=== PATIENT | female | born 1935 | race Caucasian/White ===

== ENCOUNTER 2016-11-12 11:33 | Emergency (ER) | payer OTHER ==
[2016-11-12 11:39] VITALS: TEMP 97.8; BMI 21.5
[2016-11-12] MEDS ORDERED: PANTOPRAZOLE SODIUM 40 MG in SODIUM CHLORIDE 100 ML IVPB ONE (13:40)
[2016-11-12] MEDS ORDERED: PANTOPRAZOLE SODIUM 100 ML IVPB ONE (13:47)
[2016-11-12 13:55] LABS: EOSINOPHIL 3.4 % (0-4.5); MCHC 33.8 g/dl (32.0-36.0); MEAN CELL VOLUME 82.8 fl (80-96); MEAN PLT VOLUME 7.9 fl (7.5-11.1); NEUTROPHILS 58.7 % (42.8-82.8); PLATELET COUNT 332 K/MM3 (134-434); RDW 13.8 % (11.6-15.6); WHITE BLOOD COUNT 6.7 K/mm3 (4.0-10.0)
--- NOTE | 2016-11-12 14:19 | PDOC ---
History of Present Illness - General Chief Complaint: Pain Stated Complaint: ABD PAIN (PCP SENT) Time Seen by Provider: 11/12/16 12:57 History Source: Patient Exam Limitations: No Limitations - History of Present Illness Travel History: No Initial Comments: 11/12/16 14:03 81-year-old female with history of diverticulitis presents with complaints of lower abdominal cramping, constipation, mild nausea, and epigastric burning. Patient does state is followed by Dr. Nando Acuna who prescribes her Nexium and has a follow-up appointment with her next month. Patient denies fever, chills, diarrhea but does state did have a small amount of loose stool this morning which may have been related to the MiraLAX she took a few days prior. Timing/Duration: reports: changing over time Quality: reports: mild, burning ( epigastric), cramping (lower abdomen) Pain Radiation: denies: no radiation Aggravating Factors: worse with: None Alleviating Factors: worse with: None Past History - Past Medical History Allergies/Adverse Reactions: Allergies Allergy/AdvReac Type Severity Reaction Status Date / Time erythromycin base Allergy Intermediate Hives Unverified 11/12/16 13:48 [Erythromycin Base] hyoscyamine [Hyoscyamine] Allergy Intermediate Unverified 11/12/16 13:48 lubiprostone [From Amitiza] Allergy Intermediate Unverified 11/12/16 13:48 ibandronate sodium Allergy Unverified 11/12/16 13:48 [From Boniva] montelukast sodium Allergy Hives Unverified 11/12/16 13:48 [From Singulair] moxifloxacin HCl Allergy Verified 11/12/16 13:48 [From Avelox] Penicillins Allergy Verified 11/12/16 13:48 Sulfa (Sulfonamide Allergy Verified 11/12/16 13:48 Antibiotics) [Sulfa(Sulfonamide Antibiotics)] esomeprazole magnesium AdvReac Intermediate Unverified 11/12/16 13:48 [From Nexium] meloxicam AdvReac Intermediate Unverified 11/12/16 13:48 meperidine HCl [From Demerol] AdvReac Verified 11/12/16 13:48 Penicillins Allergy Intermediate Hives Uncoded 11/12/16 13:48 Sulfa(Sulfonamide Allergy Intermediate Hives Uncoded 11/12/16 13:48 Antibiotics) moxifloxacin HCl Allergy Uncoded 11/12/16 13:48 Meperidine HCl AdvReac Intermediate Uncoded 11/12/16 13:48 meperidine HCl AdvReac Uncoded 11/12/16 13:48 Home Medications: Ambulatory Orders Aspirin Coated [Ecotrin -] 81 mg PO DAILY 10/14/11 Losartan Potassium 25 mg PO DAILY 10/14/11 Levothyroxine Sodium [Synthroid] 25 mcg PO DAILY 10/15/11 Famotidine [Pepcid] 20 mg PO HS 11/12/16 Polyethylene Glycol 3350 [Miralax (For Daily Use) -] 17 gm PO PRN 11/12/16 Anemia: No Asthma: No Cancer: No Cardiac Disorders: No CVA: No COPD: No CHF: No Dementia: No Diabetes: No GI Disorders: Yes (IBS, REFLUX,DIVERTICULOSIS) Disorders: No HTN: Yes Hypercholesterolemia: No Liver Disease: No Seizures: No Thyroid Disease: Yes (HYPO) - Surgical History Abdominal Surgery: No Appendectomy: No Cardiac Surgery: No Cholecystectomy: No Lung Surgery: No Neurologic Surgery: No Orthopedic Surgery: No - Psycho/Social/Smoking Cessation Hx Anxiety: No Suicidal Ideation: No Smoking History: Never smoked Have you smoked in the past 12 months: No Information on smoking cessation initiated: No Hx Alcohol Use: No Drug/Substance Use Hx: No Substance Use Type: None Hx Substance Use Treatment: No Patient Lives Alone: No Lives with/in: spouse/SO Abd/GI Specific PMHX - Complaint Specific PMHX Diverticulitis: Yes Review of Systems - Review of Systems Able to Perform ROS?: Yes Constitutional: No: Symptoms Reported HEENTM: No: Symptoms Reported Respiratory: No: Symptoms reported Cardiac (ROS): No: Symptoms Reported ABD/GI: Yes: Constipated, Indigestion, Abdominal cramping : No: Symptoms Reported Musculoskeletal: No: Symptoms Reported Integumentary: No: Symptoms Reported Neurological: No: Symptoms reported Endocrine: No: Symptoms Reported Hematologic/Lymphatic: No: Symptoms Reported *Physical Exam - Vital Signs Last Vital Signs Temp Pulse Resp BP Pulse Ox 97.8 F 97 H 18 156/86 100 11/12/16 11:35 11/12/16 11:35 11/12/16 11:35 11/12/16 11:35 11/12/16 11:35 - Physical Exam General Appearance: Yes: Nourished, Appropriately Dressed. No: Apparent Distress HEENT: positive: EOMI, ROSY. negative: Pale Conjunctivae Neck: positive: Supple Respiratory/Chest: positive: Lungs Clear, Normal Breath Sounds. negative: Respiratory Distress, Accessory Muscle Use Cardiovascular: positive: Regular Rhythm, Regular Rate. negative: Murmur Gastrointestinal/Abdominal: positive: Soft, Tenderness (mild left lower quadrant and moderate epigastric region) Musculoskeletal: negative: CVA Tenderness Extremity: positive: Normal Capillary Refill. negative: Pedal Edema Heart Score/ECG Review - History History: Slightly suspicious - Electrocardiogram EKG: Normal - Age Age: >/= 65 - Risk Factors Based on the list above the patient has:: 1-2 risk factors - Troponin Troponin: </= normal limit - Score Heart Score - Total: 3 - ECG Intrepretation Rhythm: Regular Rhythm (normal sinus rhythm at 83. Left atrial enlargement.) ED Treatment Course - LABORATORY CBC & Chemistry Diagram: 11/12/16 13:44 11/12/16 13:44 - ADDITIONAL ORDERS Additional order review: 11/12/16 13:44 RBC 4.63 MCV 82.8 MCHC 33.8 RDW 13.8 MPV 7.9 Neutrophils % 58.7 Lymphocytes % 28.0 Monocytes % 8.9 Eosinophils % 3.4 Basophils % 1.0 - Medications Given in the ED: ED Medications Discontinued Medications Generic Name Dose Route Start Last Admin Trade Name Freq PRN Reason Stop Dose Admin Pantoprazole Sodium 40 mg/ 100 mls @ 200 mls/hr 11/12/16 13:40 11/12/16 13:51 Sodium Chloride IVPB 11/12/16 14:09 200 mls/hr ONCE ONE Administration Medical Decision Making - Medical Decision Making 11/12/16 14:02 Patient with history of diverticulitis and constipation presents with lower abdominal cramping epigastric pain, and constipation since Friday. Patient on exam had mild left lower quadrant pain and mild epigastric pain. Patient had no CVA tenderness or tenderness in the right upper quadrant. Patient ordered for labs, urine, EKG, IV Protonix, and will reevaluate shortly 11/12/16 15:31 Laboratory Tests 11/12/16 11/12/16 11/12/16 13:44 13:44 13:44 WBC 6.7 Hgb 12.9 Hct 38.3 Plt Count 332 Neutrophils % 58.7 Sodium 135 L Potassium 4.1 Chloride 97 L Carbon Dioxide 29 Anion Gap 9 BUN 11 Creatinine 0.6 Random Glucose 82 Calcium 9.4 Total Bilirubin 0.5 AST 15 ALT 20 Troponin I Lipase 140 Urine Blood 1+ H Urine Nitrite Negative Urine Urobilinogen Negative Urine WBC <1 11/12/16 13:44 WBC Hgb Hct Plt Count Neutrophils % Sodium Potassium Chloride Carbon Dioxide Anion Gap BUN Creatinine Random Glucose Calcium Total Bilirubin AST ALT Troponin I < 0.02 Lipase Urine Blood Urine Nitrite Urine Urobilinogen Urine WBC Patient states feeling much better after receiving Protonix. Patient states will follow up with Dr. Ayala and call her tomorrow. *DC/Admit/Observation/Transfer Diagnosis at time of Disposition: Epigastric pain - Discharge Dispostion Disposition: HOME Condition at time of disposition: Improved - Referrals Referrals: Laron Perera MD [Primary Care Provider] - Cristiana Ayala MD, FACP, FACG [Staff Physician] - - Patient Instructions Printed Discharge Instructions: DI for Epigastric Pain Additional Instructions: Please call your file clerk Dr. Ayala to discuss today's visit. Please return to ED if your symptoms return or worsen.
[2016-11-12 14:21] LABS: ALK PHOS 75 U/L (45-117); ANION GAP 9 (8-16); BILIRUBIN,TOTAL 0.5 mg/dL (0.2-1.0); CALCIUM 9.4 mg/dL (8.5-10.1); CO2 29 mmol/L (21-32); CREATININE 0.6 mg/dL (0.55-1.02); GLUCOSE,RANDOM 82 mg/dL (74-106); SGOT/AST 15 U/L (15-37); SGPT/ALT 20 U/L (12-78); TOT PROT 7.3 g/dl (6.4-8.2)
[2016-11-12 14:23] LABS: TROPONIN I < 0.02 ng/ml (0.00-0.05)
[2016-11-12 14:25] LABS: URINE APPEARANCE CLEAR; URINE BILIRUBIN NEGATIVE (NEGATIVE); URINE COLOR STRAW; URINE GLUCOSE (UA) NEGATIVE (NEGATIVE); URINE KETONE NEGATIVE (NEGATIVE); URINE LEUK ESTERASE NEGATIVE (NEGATIVE); URINE NITRITE NEGATIVE (NEGATIVE); URINE PROTEIN NEGATIVE (NEGATIVE); URINE UROBILINOGEN NEGATIVE E.U./dl (0.2-1.0)
[2016-11-12 14:34] LABS: URINE BLOOD 1+ (NEGATIVE)
--- NOTE | 2016-11-12 14:43 | EKG ---
Test Reason : Blood Pressure : / mmHG Vent. Rate : 083 BPM Atrial Rate : 083 BPM P-R Int : 138 ms QRS Dur : 082 ms QT Int : 368 ms P-R-T Axes : 065 074 066 degrees QTc Int : 432 ms NORMAL SINUS RHYTHM POSSIBLE LEFT ATRIAL ENLARGEMENT BORDERLINE ECG WHEN COMPARED WITH ECG OF 07-MAY-2010 15:20, NO SIGNIFICANT CHANGE WAS FOUND Confirmed by AGNES CUELLAR MD ([id number]) on 11/12/2016 2:42:54 PM Referred By: Confirmed By:AGNES CUELLAR MD
[2016-11-12 14:44] LABS: URINE RBC 3 /hpf (0-3); URINE WBC <1 /hpf (3-5)
[2016-11-12 15:55] VITALS: BP 148/82; PULSE 89
== END 2016-11-12 15:54 | disposition home or self-care (01) ==
LOC: JER 11:33
PROC: 3E033GC Introduction of Other Therapeutic Substance into Peripheral Vein, Percutaneous Approach (ICD-10-PCS; principal; 2016-11-12)
DX: R10.13 Epigastric pain (principal); I10 Essential (primary) hypertension; E03.9 Hypothyroidism, unspecified
CPT/HCPCS: 36415; 80053; 81003; 81015; 82550; 83690; 84484; 85025; 87086; 93005; 93010; 96365; 99284-25

== ENCOUNTER 2018-04-24 14:43 | Emergency (ER) | payer OTHER ==
[2018-04-24 15:34] VITALS: TEMP 98.6; BMI 22.0
--- NOTE | 2018-04-24 15:37 | PDOC ---
History of Present Illness - General Chief Complaint: Blood Pressure Problem Stated Complaint: HIGH BLOOD PRESSURE Time Seen by Provider: 04/24/18 15:17 History Source: Patient Exam Limitations: No Limitations - History of Present Illness Initial Comments: 83 yo F with history of HTN presents with elevated BP, syncopal event last night. She states that she has been in physical therapy for LUE problems, got home from therapy yesterday and was sore. She decided to take a hot bath ( described by patient as "too hot") with epsom salts. She states that she may have dozed off while she was in the bath. As per , she was in there 15- 20 minutes. She started to feel lightheaded as she got out, then felt as if she would pass out. heard a thump. She hit her head on the bathroom floor, L rastafari. She takes aspirin a few days a week, but stopped 4 days ago due to easy bruising. No weakness, numbness. Denies cp, SOB. She presents today because her BP was higher than normal. Past History - Past Medical History Allergies/Adverse Reactions: Allergies Allergy/AdvReac Type Severity Reaction Status Date / Time erythromycin base Allergy Intermediate Hives Unverified 11/12/16 13:48 [Erythromycin Base] hyoscyamine [Hyoscyamine] Allergy Intermediate Unverified 11/12/16 13:48 lubiprostone [From Amitiza] Allergy Intermediate Unverified 11/12/16 13:48 ibandronate sodium Allergy Unverified 11/12/16 13:48 [From Boniva] montelukast sodium Allergy Hives Unverified 11/12/16 13:48 [From Singulair] moxifloxacin HCl Allergy Verified 11/12/16 13:48 [From Avelox] Penicillins Allergy Verified 11/12/16 13:48 Sulfa (Sulfonamide Allergy Verified 11/12/16 13:48 Antibiotics) [Sulfa(Sulfonamide Antibiotics)] esomeprazole magnesium AdvReac Intermediate Unverified 11/12/16 13:48 [From Nexium] meloxicam AdvReac Intermediate Unverified 11/12/16 13:48 meperidine HCl [From Demerol] AdvReac Verified 11/12/16 13:48 Penicillins Allergy Intermediate Hives Uncoded 11/12/16 13:48 Sulfa(Sulfonamide Allergy Intermediate Hives Uncoded 11/12/16 13:48 Antibiotics) moxifloxacin HCl Allergy Uncoded 11/12/16 13:48 Meperidine HCl AdvReac Intermediate Uncoded 11/12/16 13:48 meperidine HCl AdvReac Uncoded 11/12/16 13:48 Home Medications: Ambulatory Orders Aspirin Coated [Ecotrin -] 81 mg PO DAILY 10/14/11 Losartan Potassium 25 mg PO DAILY 10/14/11 Levothyroxine Sodium [Synthroid] 25 mcg PO DAILY 10/15/11 Famotidine [Pepcid] 20 mg PO DAILY 11/12/16 Polyethylene Glycol 3350 [Miralax (For Daily Use) -] 17 gm PO PRN PRN 11/12/16 Acetaminophen 500 mg PO DAILY PRN 04/24/18 Cholecalciferol (Vitamin D3) [Vitamin D3] 2,000 unit PO DAILY 04/24/18 Esomeprazole Magnesium 40 mg PO DAILY 04/24/18 Multivit-Min/Iron/Folic/Lutein [Centrum Silver Women Tablet] 1 each PO DAILY Anemia: No Asthma: No Cancer: No Cardiac Disorders: No CVA: No COPD: No CHF: No Dementia: No Diabetes: No GI Disorders: Yes (BLAKE'S ESOPHAGUS, GASTRIC POLYPS) Disorders: No HTN: Yes Hypercholesterolemia: No Liver Disease: No Seizures: No Thyroid Disease: Yes (HYPO) Other medical history: ARTHRITIS - Surgical History Abdominal Surgery: No Appendectomy: No Cardiac Surgery: No Cholecystectomy: No Lung Surgery: No Neurologic Surgery: No Orthopedic Surgery: No - Suicide/Smoking/Psychosocial Hx Smoking History: Never smoked Have you smoked in the past 12 months: No Hx Alcohol Use: No Drug/Substance Use Hx: No Substance Use Type: None Hx Substance Use Treatment: No Review of Systems - Review of Systems Able to Perform ROS?: Yes Comments:: GENERAL/CONSTITUTIONAL: No fever or chills. No weakness. HEAD, EYES, EARS, NOSE AND THROAT: No change in vision. No ear pain or discharge. No sore throat. CARDIOVASCULAR: No chest pain or shortness of breath. RESPIRATORY: No cough, wheezing, or hemoptysis. GASTROINTESTINAL: No nausea, vomiting, diarrhea or constipation. GENITOURINARY: No dysuria, frequency, or change in urination. MUSCULOSKELETAL: No joint or muscle swelling or pain. No neck or back pain. SKIN: No rash NEUROLOGIC: No headache, vertigo, or change in strength/sensation. +Loss of consciousness yesterday. ENDOCRINE: No increased thirst. No abnormal weight change. HEMATOLOGIC/LYMPHATIC: No anemia or history of blood clots. +Easy bruising. ALLERGIC/IMMUNOLOGIC: No hives or skin allergy. *Physical Exam - Vital Signs Last Vital Signs Temp Pulse Resp BP Pulse Ox 98.6 F 90 16 178/80 H 100 04/24/18 14:44 04/24/18 14:44 04/24/18 14:44 04/24/18 14:44 04/24/18 14:44 - Physical Exam Comments: GENERAL: Awake, alert, and fully oriented, in no acute distress HEAD: No signs of trauma EYES: PERRLA, EOMI, sclera anicteric, conjunctiva clear ENT: Auricles normal inspection, hearing grossly normal, nares patent, oropharynx clear without exudates. Moist mucosa NECK: Normal ROM, supple, no lymphadenopathy, JVD, or masses LUNGS: Breath sounds equal, clear to auscultation bilaterally. No wheezes, and no crackles HEART: Regular rate and rhythm, normal S1 and S2, no murmurs, rubs or gallops ABDOMEN: Soft, nontender, normoactive bowel sounds. No guarding, no rebound. No masses EXTREMITIES: Normal range of motion, no edema. No clubbing or cyanosis. No cords, erythema, or tenderness NEUROLOGICAL: Cranial nerves II through XII grossly intact. Normal speech, normal gait. Motor and sensation intact. SKIN: Warm, Dry, normal turgor, no rashes or lesions noted. Moderate Sedation - Procedure Monitoring Vital Signs: Procedure Monitoring Vital Signs Temperature 98.6 F 04/24/18 14:44 Pulse Rate 90 04/24/18 14:44 Respiratory Rate 16 04/24/18 14:44 Blood Pressure 178/80 H 04/24/18 14:44 O2 Sat by Pulse Oximetry (%) 100 04/24/18 14:44 ED Treatment Course - LABORATORY CBC & Chemistry Diagram: 04/24/18 16:10 04/24/18 16:10 Medical Decision Making - Medical Decision Making 04/24/18 17:40 Discussed initial results with patient. Will send repeat trop at 3rd hour, and if negative, will DC home. As per patient, she had a cardiac workup a few months ago that was negative. *DC/Admit/Observation/Transfer Diagnosis at time of Disposition: Syncope Qualifiers: Syncope type: unspecified Qualified Code(s): R55 - Syncope and collapse - Discharge Dispostion Condition at time of disposition: Stable Decision to Admit order: No - Referrals Referrals: Laron Perera MD [Primary Care Provider] - - Patient Instructions - Post Discharge Activity
[2018-04-24 16:29] LABS: BASO % 1.2 % (0-2.0); EOS % 1.2 % (0-4.5); HEMATOCRIT 40.1 % (32.4-45.2); HEMOGLOBIN 13.1 GM/dl (10.7-15.3); LYMPH % 24.7 % (8-40); MCH 27.5 pg (25.7-33.7); MCHC 32.7 g/dl (32.0-36.0); MEAN CELL VOLUME 84.1 fl (80-96); MEAN PLT VOLUME 7.9 fl (7.5-11.1); MONO % 9.7 % (3.8-10.2); NEUT % 63.2 % (42.8-82.8); PLATELET COUNT 414 K/MM3 (134-434); RBC 4.77 M/mm3 (3.60-5.2); RDW 12.7 % (11.6-15.6); WHITE BLOOD COUNT 7.4 K/mm3 (4.0-10.8)
[2018-04-24 16:44] LABS: ALBUMIN 4.1 g/dl (3.5-5.0); ALK PHOS 73 U/L (32-92); ANION GAP 7 MMOL/L (8-16); BILIRUBIN,TOTAL 0.5 mg/dl (0.2-1.0); BLOOD UREA NITROGEN 12 mg/dl (7-18); CALCIUM 9.4 mg/dl (8.4-10.2); CHLORIDE 99 mmol/L (98-107); CO2 26 mmol/L (22-28); CREATININE 0.6 mg/dl (0.6-1.3); GLUCOSE,RANDOM 96 mg/dl (74-106); POTASSIUM 3.7 mmol/L (3.5-5.1); SGOT/AST 19 U/L (10-42); SGPT/ALT 15 U/L (10-40); SODIUM 132 mmol/L (136-145); TOT PROT 7.3 g/dl (6.4-8.3)
[2018-04-24 19:33] VITALS: BP 125/71; PULSE 82
--- NOTE | 2018-04-24 20:19 | PDOC ---
*Physical Exam - Vital Signs Last Vital Signs Temp Pulse Resp BP Pulse Ox 98.6 F 82 16 125/71 97 04/24/18 14:44 04/24/18 19:32 04/24/18 19:32 04/24/18 19:32 04/24/18 19:32 ED Treatment Course - LABORATORY CBC & Chemistry Diagram: 04/24/18 16:10 04/24/18 16:10 - ADDITIONAL ORDERS Additional order review: Laboratory Results 04/24/18 04/24/18 04/24/18 19:03 19:03 16:10 Sodium Potassium Chloride Carbon Dioxide Anion Gap BUN Creatinine Creat Clearance w eGFR Random Glucose Calcium Total Bilirubin AST ALT Alkaline Phosphatase Creatine Kinase 66 Troponin I < 0.03 < 0.03 Total Protein Albumin TSH 04/24/18 16:10 Sodium 132 L Potassium 3.7 Chloride 99 Carbon Dioxide 26 Anion Gap 7 L BUN 12 Creatinine 0.6 Creat Clearance w eGFR > 60 Random Glucose 96 Calcium 9.4 Total Bilirubin 0.5 AST 19 ALT 15 Alkaline Phosphatase 73 Creatine Kinase 76 Troponin I Total Protein 7.3 Albumin 4.1 TSH 3.73 04/24/18 16:10 RBC 4.77 MCV 84.1 MCHC 32.7 RDW 12.7 MPV 7.9 Neutrophils % 63.2 Lymphocytes % 24.7 Monocytes % 9.7 Eosinophils % 1.2 Basophils % 1.2 Medical Decision Making - Medical Decision Making 04/24/18 20:19 She presented to the emergency department with vasovagal type reaction EKG labs all within normal limits I was asked to follow-up a second troponin Second troponin negative patient comfortable ambulating around the emergency department asking to go home Findings, the need for follow-up and strict return instructions discussed with patient. *DC/Admit/Observation/Transfer Diagnosis at time of Disposition: Syncope Qualifiers: Syncope type: unspecified Qualified Code(s): R55 - Syncope and collapse - Discharge Dispostion Condition at time of disposition: Stable Decision to Admit order: No - Referrals Referrals: Laron Perera MD [Primary Care Provider] - - Patient Instructions Printed Discharge Instructions: Fainting, DI for Syncope in Adults (Fainting) Additional Instructions: Drink plenty of fluids. Take all medications as prescribed. Follow-up with your doctor on Friday. Return to emergency department for any severe returning symptoms or for any concerns. - Post Discharge Activity
--- NOTE | 2018-04-25 17:30 | EKG ---
Test Reason : Blood Pressure : / mmHG Vent. Rate : 088 BPM Atrial Rate : 088 BPM P-R Int : 144 ms QRS Dur : 082 ms QT Int : 360 ms P-R-T Axes : 073 066 059 degrees QTc Int : 435 ms NORMAL SINUS RHYTHM POSSIBLE LEFT ATRIAL ENLARGEMENT BORDERLINE ECG WHEN COMPARED WITH ECG OF 12-NOV-2016 13:28, NO SIGNIFICANT CHANGE WAS FOUND Confirmed by MD UCHE, DIONNA ([id number]) on 04/25/2018 5:30:02 PM Referred By: MD CRUZ Confirmed By:DIONNA IVEY MD
== END 2018-04-24 20:36 | disposition home or self-care (01) ==
LOC: FER 14:43
DX: R55 Syncope and collapse (principal); I10 Essential (primary) hypertension; E03.9 Hypothyroidism, unspecified
CPT/HCPCS: 36415; 70450-TC; 71045-TC-FY; 80053; 82550; 84443; 84484; 85025; 93005; 99284-25

== ENCOUNTER 2019-01-19 10:44 | Emergency (ER) | payer OTHER ==
--- NOTE | 2019-01-19 10:59 | PDOC ---
History of Present Illness - General Chief Complaint: Chest Pain Stated Complaint: BACK/CHEST PAIN Time Seen by Provider: 01/19/19 10:49 History Source: Patient Exam Limitations: No Limitations - History of Present Illness Initial Comments: 84 year old female with PMH HTN, GERD, Barrets Esophagus, osteoporosis, dysphagia, hypothyroidism sent to ED by PCP for right sided upper back pain x5 days. Pt stated x6 days ago she went to the supermarket, carried her groceries, which often has made her sore in the past. She stated the next day she developed the pain to her right upper back, took Tylenol in the AM/PM and awoke the next morning with no back pain. She stated the next day the pain returned, but was minimal. She stated the next day she managed her pain with Tylenol, but this morning she awoke and the pain was still presented, prompting her to call her PCP, who advised her to come to the ED for medical evaluation. Pt denied chest pain, shortness of breath, cough. Pt admitted to post-nasal drip. Pt reported she last took Tylenol last night. Past History - Past Medical History Allergies/Adverse Reactions: Allergies Allergy/AdvReac Type Severity Reaction Status Date / Time erythromycin base Allergy Intermediate Hives Verified 01/19/19 10:45 [Erythromycin Base] hyoscyamine [Hyoscyamine] Allergy Intermediate Verified 01/19/19 10:45 lubiprostone [From Amitiza] Allergy Intermediate Verified 01/19/19 10:45 ibandronate sodium Allergy Verified 01/19/19 10:45 [From Boniva] montelukast sodium Allergy Hives Verified 01/19/19 10:45 [From Singulair] moxifloxacin HCl Allergy Verified 01/19/19 10:45 [From Avelox] Penicillins Allergy Verified 01/19/19 10:45 Sulfa (Sulfonamide Allergy Verified 01/19/19 10:45 Antibiotics) [Sulfa(Sulfonamide Antibiotics)] esomeprazole magnesium AdvReac Intermediate Verified 01/19/19 10:45 [From Nexium] meloxicam AdvReac Intermediate Verified 01/19/19 10:45 meperidine HCl [From Demerol] AdvReac Verified 01/19/19 10:45 Penicillins Allergy Intermediate Hives Uncoded 01/19/19 10:45 Sulfa(Sulfonamide Allergy Intermediate Hives Uncoded 01/19/19 10:45 Antibiotics) moxifloxacin HCl Allergy Uncoded 01/19/19 10:45 Meperidine HCl AdvReac Intermediate Uncoded 01/19/19 10:45 meperidine HCl AdvReac Uncoded 01/19/19 10:45 Home Medications: Ambulatory Orders Losartan Potassium 75 mg PO DAILY 10/14/11 Levothyroxine Sodium [Synthroid] 25 mcg PO DAILY 10/15/11 Famotidine [Pepcid] 20 mg PO DAILY 11/12/16 Polyethylene Glycol 3350 [Miralax (For Daily Use) -] 17 gm PO PRN PRN 11/12/16 Cholecalciferol (Vitamin D3) [Vitamin D3] 2,000 unit PO DAILY 04/24/18 Esomeprazole Magnesium 40 mg PO DAILY 04/24/18 Multivit-Min/Iron/Folic/Lutein [Centrum Silver Women Tablet] 1 each PO DAILY GI Disorders: Yes (BLAKE'S ESOPHAGUS, GASTRIC POLYPS) HTN: Yes Thyroid Disease: Yes (HYPO) - Surgical History Abdominal Surgery: No Appendectomy: No Cardiac Surgery: No Cholecystectomy: No Lung Surgery: No Neurologic Surgery: No Orthopedic Surgery: No - Suicide/Smoking/Psychosocial Hx Smoking History: Never smoked Have you smoked in the past 12 months: No Hx Alcohol Use: No Drug/Substance Use Hx: No Substance Use Type: None Hx Substance Use Treatment: No Review of Systems - Review of Systems Able to Perform ROS?: Yes Comments:: General: denied fever, chills, generalized weakness. HEENT: denied sore throat, rhinorrhea, ear pain. Cardiovascular: denied chest pain, palpitations, syncope, diaphoresis. Respiratory: denied shortness of breath, cough, sputum production, hemoptysis. Gastrointestinal: denied abdominal pain, nausea, vomiting, diarrhea, constipation, blood in stool. Genitourinary: denied dysuria, increased urinary frequency, hematuria, urinary incontinence, flank pain. Back: admitted to back pain. Musculoskeletal: denied joint pain, muscle pain, joint swelling. Neurological: denied headache, dizziness, numbness, tingling, weakness. Integumentary: denied rash, laceration, abrasion. Hematologic/Lymphatic: denied bruising or bleeding. *Physical Exam - Physical Exam Comments: Constitutional: Well-nourished, Well-developed, appearing stated age. HEENT: head is normocephalic, atraumatic. EOMI. PERRLA. no posterior pharyngeal erythema.no tonsillar swelling or exudates bilaterally. uvula midline. no peritonsillar swelling, tenderness or abscess. no jaw tenderness or misalignment. Neck: supple. Full ROM. Cardiovascular: regular heart rhythm. no murmurs. no pericardial friction rub. Respiratory: clear to auscultation bilaterally. no crackles, rhonchi or wheezing. no stridor. Gastrointestinal: soft, nontender. normal bowel sounds. no rebound, guarding, masses. Back: ropy rhomboid muscles, with tenderness to palpation on the right. ropy right trapezius muscle, with tenderness to palpation. ropy right levator scapulae muscle with tenderness to palpation. Extremities: peripheral pulses intact. no lower extremity edema. Neurological: CN 2-12 grossly intact. moves all four extremities. Psych: awake, alert, oriented x3. follows commands. answers questions appropriately. ED Treatment Course - LABORATORY CBC & Chemistry Diagram: 01/19/19 12:00 01/19/19 12:06 Medical Decision Making - Medical Decision Making 84 year old female with above PMH sent to ED by PCP for evaluation of right sided back pain. Initial Vital Signs Temp Pulse Resp BP Pulse Ox 98.5 F 82 20 169/77 98 01/19/19 10:45 01/19/19 10:45 01/19/19 10:45 01/19/19 10:45 01/19/19 10:45 Afebrile. No tachycardia. No tachypnea. Hypertensive. No hypoxia on room air. Labs ordered: CBC, CMP, troponin Imaging ordered: CXR Medications ordered: none -Pt offered Tylenol, but declined EKG performed at 1103: rate 84, regular rhythm, normal axis, normal intervals, no acute ST changes. Light palpatory massage of the rhomboid, trapezius and levator scapulae muscles reproduced the pain for the patient, and then provided pain relief. Pain likely secondary to muscle sprain from lifting groceries. CXR my view: no infiltrate. sharp costophrenic angles. no hilar enlargement. -Pending official report 01/19/19 12:28 CBC WBC 7.2 K/mm3 (4.0-10.8) 01/19/19 12:00 RBC 4.47 M/mm3 (3.60-5.2) 01/19/19 12:00 Hgb 12.8 GM/dl (10.7-15.3) 01/19/19 12:00 Hct 37.7 % (32.4-45.2) 01/19/19 12:00 MCV 84.4 fl (80-96) 01/19/19 12:00 MCH 28.6 pg (25.7-33.7) 01/19/19 12:00 MCHC 33.8 g/dl (32.0-36.0) 01/19/19 12:00 RDW 12.6 % (11.6-15.6) 01/19/19 12:00 Plt Count 400 K/MM3 (134-434) 01/19/19 12:00 MPV 7.6 fl (7.5-11.1) 01/19/19 12:00 Absolute Neuts (auto) 5.2 K/mm3 01/19/19 12:00 Neutrophils % 71.3 % (42.8-82.8) 01/19/19 12:00 Lymphocytes % 18.5 % (8-40) 01/19/19 12:00 Monocytes % 7.5 % (3.8-10.2) 01/19/19 12:00 Eosinophils % 1.9 % (0-4.5) 01/19/19 12:00 Basophils % 0.8 % (0-2.0) 01/19/19 12:00 No leukocytosis. No anemia. 01/19/19 13:04 Official CXR report: Name: [facility] DEPARTMENT OF RADIOLOGY Phys: Bandar Villalba MD : [id number] Age: 84 Sex: F [facility] Acct: [id number] Loc: [address] Exam Date: 01/19/19 Status: [place] [address] Unit Number: [id number] EXAM #: TYPE/EXAM: RESULT: [id number] RAD/CHEST PA LAT Back pain. Chest. 2 views. Comparison study April 24, 2018. No evidence of widening of the superior mediastinum, midline trachea. The cardiac silhouette is not enlarged. The lungs are well aerated without evidence of a pulmonary infiltrates, atelectasis. No evidence of a pulmonary edema, vascular congestive changes. No pleural effusion , or pneumothorax is seen. Demineralized osseous structures. The visualized osseous structures appeared intact. Impression. No evidence of active pulmonary disease. Reported By: Tyson Casey MD 01/19/19 1216 CMP Sodium 131 mmol/L (136-145) L 01/19/19 12:06 Potassium 4.4 mmol/L (3.5-5.1) 01/19/19 12:06 Chloride 100 mmol/L (98-107) 01/19/19 12:06 Carbon Dioxide 26 mmol/L (21-32) 01/19/19 12:06 Anion Gap 5 MMOL/L (8-16) L 01/19/19 12:06 BUN 10.0 mg/dl (7-18) 01/19/19 12:06 Creatinine 0.6 mg/dl (0.55-1.3) 01/19/19 12:06 Est GFR (CKD-EPI)AfAm 98.38 01/19/19 12:06 Est GFR (CKD-EPI)NonAf 84.88 01/19/19 12:06 Random Glucose 92 mg/dl (74-106) 01/19/19 12:06 Calcium 9.3 mg/dl (8.5-10) 01/19/19 12:06 Total Bilirubin 0.5 mg/dl (0.2-1) 01/19/19 12:06 AST 18 U/L (15-37) 01/19/19 12:06 ALT 14 U/L (13-61) 01/19/19 12:06 Alkaline Phosphatase 70 U/L (45-117) 01/19/19 12:06 Troponin I < 0.03 ng/ml (0.00-0.05) 01/19/19 12:06 Total Protein 6.8 g/dl (6.4-8.2) 01/19/19 12:06 Albumin 4.0 g/dl (3.4-5.0) 01/19/19 12:[address] Perera, pt's PCP, about the results. He agreed with discharge and outpatient MRI for evaluation of compression fracture if pain persists. Pt discharged. *DC/Admit/Observation/Transfer Diagnosis at time of Disposition: Back pain, Rhomboid muscle pain, Trapezius muscle strain - Discharge Dispostion Disposition: HOME Condition at time of disposition: Improved Decision to Admit order: No - Referrals - Patient Instructions Printed Discharge Instructions: DI for Muscle Strain, DI for Thoracic Back Pain Additional Instructions: Your Chest X-ray was normal. Your EKG was normal. Your blood work was normal. Take a warm epson salt bath daily. Apply a heating pad for 20 minutes on, 20 minutes off as needed for pain. Take Tylenol over the counter for pain. Rest the arm and back - do not do any heavily lifting or vigorous activity. Follow up with your primary care doctor within 3 days regarding your Emergency Room visit. Return to the Emergency Department for increasing pain, chest pain, shortness of breath, vomiting, headache, dizziness, lightheadedness, fever, coughing up blood, swelling in the legs, palpitations or any other new, worsening or concerning symptoms. - Post Discharge Activity
[2019-01-19 11:12] VITALS: BP 169/77; PULSE 82; TEMP 98.5; BMI 21.7
[2019-01-19 12:21] LABS: BASO % 0.8 % (0-2.0); EOS % 1.9 % (0-4.5); HEMATOCRIT 37.7 % (32.4-45.2); HEMOGLOBIN 12.8 GM/dl (10.7-15.3); LYMPH % 18.5 % (8-40); MCH 28.6 pg (25.7-33.7); MCHC 33.8 g/dl (32.0-36.0); MEAN CELL VOLUME 84.4 fl (80-96); MEAN PLT VOLUME 7.6 fl (7.5-11.1); MONO % 7.5 % (3.8-10.2); NEUT % 71.3 % (42.8-82.8); PLATELET COUNT 400 K/MM3 (134-434); RBC 4.47 M/mm3 (3.60-5.2); RDW 12.6 % (11.6-15.6); WHITE BLOOD COUNT 7.2 K/mm3 (4.0-10.8)
[2019-01-19 12:35] LABS: BILIRUBIN,TOTAL 0.5 mg/dl (0.2-1); CALCIUM 9.3 mg/dl (8.5-10); CREATININE 0.6 mg/dl (0.55-1.3); POTASSIUM 4.4 mmol/L (3.5-5.1); TOT PROT 6.8 g/dl (6.4-8.2)
--- NOTE | 2019-01-19 13:28 | PDOC ---
Attending Attestation - Resident Resident Name: Kaity Ludwiga - ED Attending Attestation I have performed the following: I have examined & evaluated the patient, The case was reviewed & discussed with the resident, I agree w/resident's findings & plan - HPI HPI: 01/19/19 13:23 85-year-old female presents for several days of waxing and waning complaints of R upper back discomfort. no obvious injury but did carry groceries the day before, notes a postional and localized discomfort to her R scapula area without any chest pain/difficulty breathing, no motor/sensory deficit, no f/c. occasionally gets bronchitis, denies any cough. Patient took Tylenol with relief , but given persistence of symptoms, she was referred for evaluation by Dr. Perera. - Physicial Exam PE: 01/19/19 13:28 Vital signs stable Very well-appearing and pleasant elderly woman in no acute distress, ambulating freely about the emergency department, speaking in full sentences Oropharynx is clear, neck is supple Heart is regular, lungs are clear without wheezing or crackles Focal very reproducible tenderness over the right rhomboid/medial scapular region without overlying redness or bruising Neurovascular intact distally with full arm strength and no swelling. - Medical Decision Making 01/19/19 13:29 84-year-old female with intermittent right upper back muscular skeletal complaints, atraumatic and without evidence of cardiopulmonary etiology. No red flags on history or physical exam, patient is hemodynamically stable with focal musculoskeletal findings on examination. Atypical for infectious process or ACS or vascular process. Labs sent and within normal limits, including troponin EKG and chest x-ray performed and are within normal limits. Of note, patient does have osteoporosis but the bony structures appear normal on chest x-ray Discuss with Dr. Perera, agrees with discharge plan and outpatient follow-up , patient agrees and understands return criteria. Heart Score/ECG Review #1 General ECG Interpretation: Sinus Rhythm, Normal Rate (84), Normal Intervals ( qtc 415), No acute ischemic changes Compared to previous ECG there are: No significant change (2018)
--- NOTE | 2019-01-19 15:13 | EKG ---
Test Reason : Blood Pressure : / mmHG Vent. Rate : 084 BPM Atrial Rate : 084 BPM P-R Int : 138 ms QRS Dur : 084 ms QT Int : 352 ms P-R-T Axes : 074 069 068 degrees QTc Int : 415 ms NORMAL SINUS RHYTHM POSSIBLE LEFT ATRIAL ENLARGEMENT BORDERLINE ECG WHEN COMPARED WITH ECG OF 24-APR-2018 16:34, NO SIGNIFICANT CHANGE WAS FOUND Confirmed by Hermes Patton ([id number]) on 01/19/2019 3:12:52 PM Referred By: SMITH ABDUL Confirmed By:Hermes Patton
== END 2019-01-19 13:11 | disposition home or self-care (01) ==
LOC: FER 10:44
DX: M54.9 Dorsalgia, unspecified (principal); M79.10 Myalgia, unspecified site; S39.012A Strain of muscle, fascia and tendon of lower back, initial encounter; X58.XXXA Exposure to other specified factors, initial encounter; Y93.89 Activity, other specified; Y92.89 Other specified places as the place of occurrence of the external cause
CPT/HCPCS: 36415; 71046-TC-FY; 80053; 84484; 85025; 93005; 99283-25

== ENCOUNTER 2020-09-20 13:24 | Emergency (ER) | payer OTHER ==
[2020-09-20 13:35] VITALS: TEMP 98.6; BMI 21.1
[2020-09-20 15:06] VITALS: BP 146/73; PULSE 88
== END 2020-09-20 16:53 | disposition home or self-care (01) ==
LOC: JER 13:24
DX: S09.90XA Unspecified injury of head, initial encounter (principal)
CPT/HCPCS: 70450-TC; 71045-TC-FY; 93005; 93010; 99284-25

== ENCOUNTER 2021-03-13 21:27 | Observation (INO) | payer OTHER ==
[2021-03-13] MEDS ORDERED: SODIUM CHLORIDE 0.9% 500 ML INFUS.BAG IV ONE (22:22)
[2021-03-13] MEDS ORDERED: ONDANSETRON 4 MG/2 ML VIAL IVPUSH ONE (22:22)
[2021-03-13] MEDS ORDERED: FAMOTIDINE 20 MG/50 ML IVPB 20 MG/50 ML MG IVPB ONE ×2 (22:24→22:27)
[2021-03-13] MEDS ORDERED: ONDANSETRON 4 MG/2 ML VIAL ONE (22:27)
[2021-03-13 23:22] LABS: BASO % 0.8 % (0-2.0); EOS % 0.5 % (0-4.5); HEMATOCRIT 34.6 % (32.4-45.2); HEMOGLOBIN 11.7 GM/dL (10.7-15.3); LYMPH % 7.7 % (8-40); MCH 27.5 pg (25.7-33.7); MCHC 33.7 g/dl (32.0-36.0); MEAN CELL VOLUME 81.8 fl (80-96); MEAN PLT VOLUME 7.3 fl (7.5-11.1); PLATELET COUNT 484 10^3/uL (134-434); RBC 4.24 M/mm3 (3.60-5.2); RDW 13.9 % (11.6-15.6)
[2021-03-13 23:31] LABS: PH,URINE 8.5 (5.0-8.0); URINE APPEARANCE CLEAR; URINE BILIRUBIN NEGATIVE (NEGATIVE); URINE COLOR YELLOW; URINE GLUCOSE (UA) NEGATIVE (NEGATIVE); URINE KETONE NEGATIVE (NEGATIVE); URINE LEUK ESTERASE NEGATIVE (NEGATIVE); URINE NITRITE NEGATIVE (NEGATIVE); URINE PROTEIN NEGATIVE (NEGATIVE); URINE UROBILINOGEN 0.2 mg/dL (0.2-1.0)
[2021-03-13 23:45] LABS: ALBUMIN 3.8 g/dl (3.4-5.0); BLOOD UREA NITROGEN 4.2 mg/dL (7-18); MAGNESIUM 1.8 mg/dL (1.8-2.4)
[2021-03-13 23:46] LABS: LIPASE 108 U/L (73-393)
[2021-03-13 23:48] LABS: CREATININE 0.5 mg/dL (0.55-1.3)
[2021-03-13 23:50] LABS: BILIRUBIN,TOTAL 0.7 mg/dL (0.2-1); TOT PROT 7.2 g/dl (6.4-8.2)
[2021-03-14] MEDS ORDERED: LOSARTAN POTASSIUM 50 MG TABLET PO SCH (01:34)
[2021-03-14] MEDS ORDERED: SODIUM CHLORIDE 0.9% 500 ML INFUS.BAG IV ONE (04:03)
[2021-03-14 04:18] VITALS: BMI 20.3
[2021-03-14] MEDS ORDERED: SODIUM CHLORIDE 1,000 ML IV SCH (05:15)
[2021-03-14] MEDS: LEVOTHYROXINE NA 25 MCG TABLET (FP) PO SCH (06:41)
[2021-03-14 08:12] LABS: BASO % 0.7 % (0-2.0); EOS % 0.1 % (0-4.5); HEMATOCRIT 33.7 % (32.4-45.2); HEMOGLOBIN 11.7 GM/dL (10.7-15.3); LYMPH % 9.7 % (8-40); MCH 28.4 pg (25.7-33.7); MCHC 34.8 g/dl (32.0-36.0); MEAN CELL VOLUME 81.5 fl (80-96); MEAN PLT VOLUME 7.4 fl (7.5-11.1); MONO % 7.7 % (3.8-10.2); NEUT % 81.8 % (42.8-82.8); PLATELET COUNT 520 10^3/uL (134-434); RBC 4.13 M/mm3 (3.60-5.2); RDW 13.3 % (11.6-15.6); WHITE BLOOD COUNT 11.7 K/mm3 (4.0-10.0)
[2021-03-14 08:36] LABS: ALBUMIN 3.4 g/dl (3.4-5.0); BLOOD UREA NITROGEN 4.5 mg/dL (7-18); CALCIUM 9.4 mg/dL (8.5-10.1)
[2021-03-14 08:37] LABS: MAGNESIUM 1.6 mg/dL (1.8-2.4)
[2021-03-14 08:39] LABS: CREATININE, URINE RANDOM < 13.0 mg/dL (30-150)
[2021-03-14 08:40] LABS: CREATININE 0.5 mg/dL (0.55-1.3); PHOSPHOROUS 3.6 mg/dL (2.5-4.9)
[2021-03-14 08:41] LABS: BILIRUBIN,TOTAL 0.8 mg/dL (0.2-1); TOT PROT 6.8 g/dl (6.4-8.2)
[2021-03-14] MEDS ORDERED: LOSARTAN POTASSIUM 25 MG TABLET PO SCH (10:00)
[2021-03-14] MEDS: LOSARTAN POTASSIUM 50 MG TABLET PO SCH ×2 (10:36→21:00)
[2021-03-14 14:08] LABS: CALCIUM 9.6 mg/dL (8.5-10.1)
[2021-03-14 14:09] LABS: BLOOD UREA NITROGEN 4.4 mg/dL (7-18)
[2021-03-14 14:12] LABS: CREATININE 0.5 mg/dL (0.55-1.3)
[2021-03-15] MEDS: LEVOTHYROXINE NA 25 MCG TABLET (FP) PO SCH (07:15)
[2021-03-15 07:59] LABS: BASO % 0.7 % (0-2.0); EOS % 0.7 % (0-4.5); HEMATOCRIT 34.9 % (32.4-45.2); LYMPH % 11.5 % (8-40); MCH 28.6 pg (25.7-33.7); MCHC 34.3 g/dl (32.0-36.0); MEAN CELL VOLUME 83.2 fl (80-96); MEAN PLT VOLUME 7.5 fl (7.5-11.1); MONO % 10.7 % (3.8-10.2); NEUT % 76.4 % (42.8-82.8); PLATELET COUNT 480 10^3/uL (134-434); RBC 4.19 M/mm3 (3.60-5.2); RDW 13.6 % (11.6-15.6); WHITE BLOOD COUNT 9.1 K/mm3 (4.0-10.0)
[2021-03-15 08:15] LABS: BLOOD UREA NITROGEN 8.2 mg/dL (7-18); CALCIUM 9.1 mg/dL (8.5-10.1)
[2021-03-15 08:16] LABS: MAGNESIUM 2.1 mg/dL (1.8-2.4)
[2021-03-15 08:19] LABS: CREATININE 0.6 mg/dL (0.55-1.3); PHOSPHOROUS 3.1 mg/dL (2.5-4.9)
[2021-03-15] MEDS: LOSARTAN POTASSIUM 50 MG TABLET PO SCH ×2 (09:25→23:11)
[2021-03-15] MEDS ORDERED: ACETAMINOPHEN 325 MG TABLET (FP) PO ONE (09:31)
[2021-03-15] MEDS ORDERED: LEVOTHYROXINE NA 75 MCG TABLET (FP) PO SCH (11:39)
[2021-03-15] MEDS ORDERED: LEVOTHYROXINE SODIUM 100 MCG VIAL IVPUSH ONE (11:41)
[2021-03-15] MEDS ORDERED: SIMETHICONE 80 MG TAB.CHEW (FP) PO PRN (17:15)
[2021-03-15] MEDS: SODIUM CHLORIDE 0.9% 500 ML INFUS.BAG IV ONE ×2 (17:40→18:32)
[2021-03-15] MEDS ORDERED: amLODIPine BESYLATE 5 MG TABLET (FP) PO ONE (18:03)
[2021-03-15] MEDS: FAMOTIDINE 20 MG TABLET PO SCH (23:12)
[2021-03-16] MEDS: LOSARTAN POTASSIUM 50 MG TABLET PO SCH (09:48)
[2021-03-16] MEDS: FAMOTIDINE 20 MG TABLET PO SCH (09:48)
[2021-03-16 13:41] VITALS: BP 159/81; PULSE 92; TEMP 97.9
== END 2021-03-16 17:35 | disposition home or self-care (01) ==
LOC: JER 21:27 → JERBED 03-14 00:31 → J4S 03-14 03:44
PROVIDERS: ADMIT Internal Medicine; ATTEND Internal Medicine
PROC: 3E033GC Introduction of Other Therapeutic Substance into Peripheral Vein, Percutaneous Approach (ICD-10-PCS; principal; 2021-03-14)
PROC: 3E0337Z Introduction of Electrolytic and Water Balance Substance into Peripheral Vein, Percutaneous Approach (ICD-10-PCS; 2021-03-14)
DX: R55 Syncope and collapse (principal); E87.1 Hypo-osmolality and hyponatremia; R19.7 Diarrhea, unspecified; R35.0 Frequency of micturition; K21.9 Gastro-esophageal reflux disease without esophagitis; K22.70 Barrett's esophagus without dysplasia; R13.10 Dysphagia, unspecified; R10.9 Unspecified abdominal pain; R11.10 Vomiting, unspecified; R14.0 Abdominal distension (gaseous); K59.00 Constipation, unspecified; Z88.8 Allergy status to other drugs, medicaments and biological substances; E03.9 Hypothyroidism, unspecified
CPT/HCPCS: 36415; 70450-TC; 71045-TC-FY; 80048; 80053; 81003; 82550; 82570; 82962; 83690; 83735; 83935; 84100; 84300; 84443; 84484; 85025; 87086; 93005; 93010; 96361; 96365; 96375; 97116-GP; 97161-GP; 99285-25; C9803; G0378; U0003; U0005

== ENCOUNTER 2021-05-07 11:07 | Emergency (ER) | payer OTHER ==
[2021-05-07 11:12] VITALS: BP 181/73; PULSE 91; TEMP 98.7; BMI 18.1
== END 2021-05-07 15:17 | disposition home or self-care (01) ==
LOC: JER 11:07
DX: S09.90XA Unspecified injury of head, initial encounter (principal); W19.XXXA Unspecified fall, initial encounter
CPT/HCPCS: 70450-TC; 72125-TC; 99284-25

== ENCOUNTER 2021-11-16 11:45 | Inpatient (IN) | payer OTHER ==
[2021-11-16 13:27] LABS: URINE APPEARANCE CLEAR; URINE BILIRUBIN NEGATIVE (NEGATIVE); URINE COLOR YELLOW; URINE GLUCOSE (UA) NEGATIVE (NEGATIVE); URINE KETONE NEGATIVE (NEGATIVE); URINE LEUK ESTERASE NEGATIVE (NEGATIVE); URINE NITRITE NEGATIVE (NEGATIVE); URINE PROTEIN NEGATIVE (NEGATIVE); URINE UROBILINOGEN 0.2 mg/dL (0.2-1.0)
[2021-11-16 13:28] LABS: BASO % 0.6 % (0-2.0); EOS % 0.5 % (0-4.5); HEMATOCRIT 35.7 % (32.4-45.2); HEMOGLOBIN 12.4 GM/dL (10.7-15.3); MCH 27.8 pg (25.7-33.7); MCHC 34.7 g/dl (32.0-36.0); MONO % 10.8 % (3.8-10.2); NEUT % 68.1 % (42.8-82.8); PLATELET COUNT 494 10^3/uL (134-434); RBC 4.46 M/mm3 (3.60-5.2); RDW 13.2 % (11.6-15.6); WHITE BLOOD COUNT 9.8 K/mm3 (4.0-10.0)
[2021-11-16 13:37] LABS: INR 1.03 (0.83-1.09); PROTHROMBIN TIME (PATIENT) 11.8 SEC (9.7-13.0)
[2021-11-16 13:40] LABS: ACTIVATED PTT 31.9 SECONDS (25.2-36.5)
[2021-11-16 14:02] LABS: BLOOD UREA NITROGEN 9.7 mg/dL (7-18); CALCIUM 9.5 mg/dL (8.5-10.1)
[2021-11-16 14:05] LABS: CREATININE 0.5 mg/dL (0.55-1.3)
[2021-11-16 14:07] LABS: BILIRUBIN,TOTAL 0.8 mg/dL (0.2-1); TOT PROT 7.3 g/dl (6.4-8.2)
[2021-11-16] MEDS ORDERED: ACETAMINOPHEN 500 MG TABLET (FP) PO ONE (15:43)
[2021-11-16] MEDS ORDERED: ACETAMINOPHEN 325 MG TABLET (FP) ONE (16:17)
[2021-11-17] MEDS: LEVOTHYROXINE NA 25 MCG TABLET (FP) PO SCH (06:22)
[2021-11-17] MEDS: SODIUM CHLORIDE 1,000 ML IV SCH (06:22)
[2021-11-17] MEDS: PANTOPRAZOLE 40 MG TABLET PO SCH (06:22)
[2021-11-17 08:08] LABS: BASO % 0.7 % (0-2.0); EOS % 0.3 % (0-4.5); HEMATOCRIT 37.6 % (32.4-45.2); HEMOGLOBIN 12.9 GM/dL (10.7-15.3); LYMPH % 13.7 % (8-40); MCH 27.9 pg (25.7-33.7); MCHC 34.4 g/dl (32.0-36.0); MEAN PLT VOLUME 7.3 fl (7.5-11.1); MONO % 10.2 % (3.8-10.2); NEUT % 75.1 % (42.8-82.8); PLATELET COUNT 468 10^3/uL (134-434); RBC 4.64 M/mm3 (3.60-5.2); WHITE BLOOD COUNT 8.3 K/mm3 (4.0-10.0)
[2021-11-17 08:36] LABS: CALCIUM 9.4 mg/dL (8.5-10.1)
[2021-11-17 08:37] LABS: ALBUMIN 3.8 g/dl (3.4-5.0); BLOOD UREA NITROGEN 11.1 mg/dL (7-18); MAGNESIUM 2.1 mg/dL (1.8-2.4)
[2021-11-17 08:40] LABS: CREATININE 0.4 mg/dL (0.55-1.3); PHOSPHOROUS 3.6 mg/dL (2.5-4.9)
[2021-11-17 08:42] LABS: BILIRUBIN,TOTAL 0.7 mg/dL (0.2-1); TOT PROT 6.9 g/dl (6.4-8.2)
[2021-11-17] MEDS: ENOXAPARIN NA (PORCINE) 40 MG/0.4 ML DISP.SYRIN SQ SCH (09:48)
[2021-11-17] MEDS ORDERED: ACETAMINOPHEN 325 MG TABLET (FP) PO PRN (15:51)
[2021-11-17 22:22] VITALS: BMI 18.7
[2021-11-18] MEDS: SODIUM CHLORIDE 1,000 ML IV SCH (06:20)
[2021-11-18] MEDS: LEVOTHYROXINE NA 25 MCG TABLET (FP) PO SCH (06:21)
[2021-11-18] MEDS: PANTOPRAZOLE 40 MG TABLET PO SCH (06:21)
[2021-11-18] MEDS: MULTIVITAMINS (DAILY MVI) TABLET (FP) PO SCH (10:04)
[2021-11-18] MEDS: ENOXAPARIN NA (PORCINE) 40 MG/0.4 ML DISP.SYRIN SQ SCH (10:04)
[2021-11-18] MEDS: HALOPERIDOL LACTATE 5 MG/ML IM PRN (17:33)
[2021-11-19] MEDS ORDERED: HALOPERIDOL LACTATE 5 MG/ML IM ONE (00:48)
[2021-11-19] MEDS: SODIUM CHLORIDE 1,000 ML IV SCH (06:00)
[2021-11-19] MEDS: LEVOTHYROXINE NA 25 MCG TABLET (FP) PO SCH (06:06)
[2021-11-19] MEDS: PANTOPRAZOLE 40 MG TABLET PO SCH (06:06)
[2021-11-19 08:31] LABS: BLOOD UREA NITROGEN 12.1 mg/dL (7-18)
[2021-11-19 08:32] LABS: CALCIUM 9.1 mg/dL (8.5-10.1)
[2021-11-19 08:34] LABS: CREATININE 0.4 mg/dL (0.55-1.3)
[2021-11-19] MEDS: ENOXAPARIN NA (PORCINE) 40 MG/0.4 ML DISP.SYRIN SQ SCH (09:54)
[2021-11-19] MEDS: MULTIVITAMINS (DAILY MVI) TABLET (FP) PO SCH (09:54)
[2021-11-19] MEDS: HALOPERIDOL LACTATE 5 MG/ML IM PRN ×2 (22:11→23:27)
[2021-11-20] MEDS: LEVOTHYROXINE NA 25 MCG TABLET (FP) PO SCH (08:09)
[2021-11-20] MEDS: PANTOPRAZOLE 40 MG TABLET PO SCH (08:09)
[2021-11-20 08:58] LABS: CALCIUM 9.7 mg/dL (8.5-10.1)
[2021-11-20 09:01] LABS: BLOOD UREA NITROGEN 14.3 mg/dL (7-18)
[2021-11-20 09:05] LABS: CREATININE 0.4 mg/dL (0.55-1.3)
[2021-11-20] MEDS: MULTIVITAMINS (DAILY MVI) TABLET (FP) PO SCH (09:43)
[2021-11-20] MEDS: ENOXAPARIN NA (PORCINE) 40 MG/0.4 ML DISP.SYRIN SQ SCH (09:43)
[2021-11-20] MEDS: SODIUM CHLORIDE 1 GM TABLET PO SCH ×3 (18:47→22:41)
[2021-11-21] MEDS: LEVOTHYROXINE NA 25 MCG TABLET (FP) PO SCH (06:46)
[2021-11-21] MEDS: PANTOPRAZOLE 40 MG TABLET PO SCH (06:47)
[2021-11-21 07:45] LABS: BASO % 0.3 % (0-2.0); EOS % 0.3 % (0-4.5); HEMATOCRIT 34.5 % (32.4-45.2); HEMOGLOBIN 11.8 GM/dL (10.7-15.3); LYMPH % 9.9 % (8-40); MCH 27.8 pg (25.7-33.7); MCHC 34.3 g/dl (32.0-36.0); MEAN PLT VOLUME 7.6 fl (7.5-11.1); MONO % 13.9 % (3.8-10.2); NEUT % 75.6 % (42.8-82.8); PLATELET COUNT 442 10^3/uL (134-434); RBC 4.26 M/mm3 (3.60-5.2); RDW 13.3 % (11.6-15.6); WHITE BLOOD COUNT 10.9 K/mm3 (4.0-10.0)
[2021-11-21 08:00] LABS: BLOOD UREA NITROGEN 17.6 mg/dL (7-18); CALCIUM 9.2 mg/dL (8.5-10.1)
[2021-11-21 08:03] LABS: CREATININE 0.5 mg/dL (0.55-1.3)
[2021-11-21 08:05] LABS: BILIRUBIN,TOTAL 0.6 mg/dL (0.2-1); TOT PROT 6.3 g/dl (6.4-8.2)
[2021-11-21] MEDS: ENOXAPARIN NA (PORCINE) 40 MG/0.4 ML DISP.SYRIN SQ SCH (09:44)
[2021-11-21] MEDS: MULTIVITAMINS (DAILY MVI) TABLET (FP) PO SCH (09:44)
[2021-11-21] MEDS: SODIUM CHLORIDE 1 GM TABLET PO SCH (12:06)
[2021-11-21] MEDS ORDERED: CELECOXIB 200 MG CAPSULE PO ONE (13:00)
[2021-11-21] MEDS ORDERED: FAMOTIDINE 20 MG/50 ML IVPB 20 MG/50 ML MG IVPB ONE (13:46)
[2021-11-21] MEDS ORDERED: DOCUSATE NA 100 MG/10 ML UNIT-DOSE CUPS PO PRN (16:04)
[2021-11-22] MEDS: PANTOPRAZOLE 40 MG TABLET PO SCH (06:00)
[2021-11-22] MEDS: LEVOTHYROXINE NA 25 MCG TABLET (FP) PO SCH (06:00)
[2021-11-22 07:37] LABS: BASO % 0.7 % (0-2.0); EOS % 0.5 % (0-4.5); HEMATOCRIT 34.9 % (32.4-45.2); HEMOGLOBIN 11.8 GM/dL (10.7-15.3); LYMPH % 14.8 % (8-40); MCH 27.6 pg (25.7-33.7); MEAN CELL VOLUME 81.4 fl (80-96); MEAN PLT VOLUME 7.6 fl (7.5-11.1); PLATELET COUNT 456 10^3/uL (134-434); RBC 4.29 M/mm3 (3.60-5.2); RDW 13.3 % (11.6-15.6); WHITE BLOOD COUNT 9.1 K/mm3 (4.0-10.0)
[2021-11-22 08:00] LABS: CALCIUM 9.2 mg/dL (8.5-10.1)
[2021-11-22 08:03] LABS: BLOOD UREA NITROGEN 25.2 mg/dL (7-18)
[2021-11-22 08:06] LABS: CREATININE 0.4 mg/dL (0.55-1.3)
[2021-11-22] MEDS ORDERED: LOSARTAN POTASSIUM 50 MG TABLET PO SCH (10:00)
[2021-11-22 10:02] VITALS: BP 111/51; PULSE 91; TEMP 98.7
[2021-11-22] MEDS: ENOXAPARIN NA (PORCINE) 40 MG/0.4 ML DISP.SYRIN SQ SCH (10:06)
[2021-11-22] MEDS: SODIUM CHLORIDE 1 GM TABLET PO SCH (10:07)
[2021-11-22] MEDS: MULTIVITAMINS (DAILY MVI) TABLET (FP) PO SCH (10:07)
== END 2021-11-22 12:04 | DRG 884 ==
LOC: JER 11:45 → JERBED 15:45 → J4S 20:49 → OBSVTOIN 11-18 16:10
PROVIDERS: ADMIT Hospitalist; ATTEND Internal Medicine
DX: F03.91 Unspecified dementia, unspecified severity, with behavioral disturbance (principal); E87.1 Hypo-osmolality and hyponatremia; R64 Cachexia; Z68.1 Body mass index [BMI] 19.9 or less, adult; I10 Essential (primary) hypertension; K21.9 Gastro-esophageal reflux disease without esophagitis; E03.9 Hypothyroidism, unspecified; M81.0 Age-related osteoporosis without current pathological fracture; K22.70 Barrett's esophagus without dysplasia; R45.1 Restlessness and agitation; R29.6 Repeated falls; W18.39XA Other fall on same level, initial encounter; Y92.89 Other specified places as the place of occurrence of the external cause
CPT/HCPCS: 36415; 70450-TC; 71045-TC-FY; 72125-TC; 73502-TC-RT-FY; 73590-TC-RT-FY; 80048; 80053; 81003; 83735; 84100; 84443; 84484; 85025; 85610; 85730; 86780; 87086; 93005; 93010; 93880-TC; 97116-GP; 97162-GP; 99285-25; C9803-CS; G0378; U0003; U0005

== ENCOUNTER 2023-09-27 20:04 | Inpatient (IN) | payer OTHER ==
[2023-09-27 20:26] VITALS: BMI 18.3
[2023-09-27] MEDS ORDERED: ACETAMINOPHEN INJECTION 100 ML IVPB ONE (20:48)
[2023-09-27] MEDS: ACETAMINOPHEN 1000 MG/100 ML BAG IVPB ONE (20:51)
[2023-09-27 20:58] LABS: INR 1.05 (0.83-1.09); PROTHROMBIN TIME (PATIENT) 11.8 SEC (9.7-13.0)
[2023-09-27 21:10] LABS: BASO % 0.3 % (0-2.0); EOS % 0.8 % (0-4.5); HEMATOCRIT 39.5 % (32.4-45.2); HEMOGLOBIN 13.5 GM/dL (10.7-15.3); LYMPH % 9.1 % (8-40); MCH 28.4 pg (25.7-33.7); MCHC 34.3 g/dl (32.0-36.0); MEAN CELL VOLUME 82.9 fl (80-96); MEAN PLT VOLUME 7.7 fl (7.5-11.1); MONO % 5.6 % (3.8-10.2); NEUT % 84.2 % (42.8-82.8); PLATELET COUNT 326 10^3/uL (134-434); RBC 4.76 M/mm3 (3.60-5.2); RDW 13.6 % (11.6-15.6); WHITE BLOOD COUNT 14.6 K/mm3 (4.0-10.0)
[2023-09-27 21:11] LABS: POTASSIUM 3.7 mmol/L (3.5-5.1)
[2023-09-27 21:13] LABS: ALBUMIN 4.1 g/dl (3.4-5.0); BLOOD UREA NITROGEN 13.2 mg/dL (7-18); CALCIUM 9.5 mg/dL (8.5-10.1)
[2023-09-27 21:16] LABS: CREATININE 0.6 mg/dL (0.55-1.3)
[2023-09-27 21:18] LABS: BILIRUBIN,TOTAL 0.5 mg/dL (0.2-1); TOT PROT 7.3 g/dl (6.4-8.2)
[2023-09-27 21:36] LABS: PH,URINE 7.5 (5.0-8.0); URINE APPEARANCE CLEAR; URINE BILIRUBIN NEGATIVE (NEGATIVE); URINE COLOR YELLOW; URINE GLUCOSE (UA) NEGATIVE (NEGATIVE); URINE KETONE NEGATIVE (NEGATIVE); URINE LEUK ESTERASE NEGATIVE (NEGATIVE); URINE NITRITE NEGATIVE (NEGATIVE); URINE PROTEIN TRACE (NEGATIVE); URINE UROBILINOGEN 0.2 mg/dL (0.2-1.0)
[2023-09-27] MEDS: morphine CARPU-JECT 2 MG/1 ML DISP.SYRIN IVPUSH ONE (22:42)
[2023-09-27] MEDS: LACTATED RINGERS SOLUTION 1,000 ML/1,000 ML INFUS.BAG IV STA (22:47)
[2023-09-28] MEDS: SODIUM CHLORIDE 1,000 ML IV SCH (05:29)
[2023-09-28] MEDS: LOSARTAN POTASSIUM 50 MG TABLET PO ONE (05:39)
[2023-09-28] MEDS: amLODIPine BESYLATE 10 MG TABLET (FP) PO ONE (05:40)
[2023-09-28] MEDS: LEVOTHYROXINE NA 25 MCG TABLET (FP) PO SCH (06:12)
[2023-09-28] MEDS: PANTOPRAZOLE 40 MG TABLET PO SCH (06:12)
[2023-09-28] MEDS ORDERED: ACETAMINOPHEN 1000 MG/100 ML BAG IVPB PRN (07:07)
[2023-09-28 07:23] LABS: POTASSIUM 3.2 mmol/L (3.5-5.1)
[2023-09-28 07:27] LABS: HEMOGLOBIN 12.4 GM/dL (10.7-15.3); MCH 27.8 pg (25.7-33.7); MCHC 33.5 g/dl (32.0-36.0); RBC 4.46 M/mm3 (3.60-5.2); WHITE BLOOD COUNT 12.2 K/mm3 (4.0-10.0)
[2023-09-28 07:28] LABS: MEAN PLT VOLUME 8.3 fl (7.5-11.1); PLATELET COUNT 271 10^3/uL (134-434); RDW 13.6 % (11.6-15.6)
[2023-09-28 07:31] LABS: CALCIUM 8.8 mg/dL (8.5-10.1)
[2023-09-28 07:32] LABS: ALBUMIN 3.5 g/dl (3.4-5.0); BLOOD UREA NITROGEN 8.6 mg/dL (7-18); CREATININE 0.4 mg/dL (0.55-1.3)
[2023-09-28 07:34] LABS: TOT PROT 6.6 g/dl (6.4-8.2)
[2023-09-28 07:35] LABS: BILIRUBIN,TOTAL 0.9 mg/dL (0.2-1)
[2023-09-28] MEDS ORDERED: hydrALAZINE HCL 10 MG TABLET PO PRN (09:36)
[2023-09-28] MEDS: LOSARTAN POTASSIUM 25 MG TABLET PO SCH (10:01)
[2023-09-28] MEDS: SODIUM CHLORIDE 1 GM TABLET PO SCH (11:00)
[2023-09-28] MEDS: ONDANSETRON 4 MG/2 ML VIAL IVPUSH PRN (15:23)
[2023-09-28] MEDS: PANTOPRAZOLE SODIUM 40 MG VIAL IVPUSH ONE (15:48)
[2023-09-28] MEDS: ATORVASTATIN CA 40 MG TABLET (FP) PO SCH (21:16)
[2023-09-28] MEDS: LACTATED RINGERS SOLUTION 1,000 ML/1,000 ML INFUS.BAG IV SCH (21:17)
[2023-09-28] MEDS ORDERED: LIDOCAINE HCL/PF 2% SDV 5ML VIAL ONE (22:06)
[2023-09-28] MEDS ORDERED: PROPOFOL 20 ML ONE (22:06)
[2023-09-28] MEDS ORDERED: FENTANYL CITRATE/PF 50 MCG/ML VIAL ONE (22:06)
[2023-09-29 09:19] LABS: HEMATOCRIT 38.2 % (32.4-45.2); HEMOGLOBIN 13.4 GM/dL (10.7-15.3); MCH 28.6 pg (25.7-33.7); MCHC 35.1 g/dl (32.0-36.0); MEAN CELL VOLUME 81.6 fl (80-96); PLATELET COUNT 295 10^3/uL (134-434); RBC 4.68 M/mm3 (3.60-5.2); RDW 13.7 % (11.6-15.6); WHITE BLOOD COUNT 14.1 K/mm3 (4.0-10.0)
[2023-09-29 09:32] LABS: POTASSIUM 3.1 mmol/L (3.5-5.1)
[2023-09-29 09:35] LABS: CALCIUM 9.3 mg/dL (8.5-10.1)
[2023-09-29 09:36] LABS: BLOOD UREA NITROGEN 13.1 mg/dL (7-18)
[2023-09-29 09:39] LABS: CREATININE 0.6 mg/dL (0.55-1.3)
[2023-09-29] MEDS: MULTIVITAMINS (DAILY MVI) TABLET (FP) PO SCH (10:21)
[2023-09-29] MEDS: POTASSIUM CHLORIDE ORAL LIQUID 20 MEQ/15 ML PO ONE ×2 (10:30→10:37)
[2023-09-29] MEDS: KCL 10 MEQ IVPB 10 MEQ/100 ML INFUS.BAG IVPB SCH ×2 (11:39→15:25)
[2023-09-29] MEDS ORDERED: LOSARTAN POTASSIUM 50 MG TABLET PO SCH (12:40)
[2023-09-29] MEDS ORDERED: SENNOSIDES/DOCUSATE COMBO (SENNA PLUS) TABLET (UD) PO PRN ×2 (14:40→19:20)
[2023-09-29] MEDS ORDERED: MAGNESIUM HYDROX 2400MG/30ML ORAL SUSPENSION 30 ML CUP PO PRN (14:41)
[2023-09-29] MEDS: PANTOPRAZOLE SODIUM 40 MG VIAL IVPUSH ONE (15:15)
[2023-09-29] MEDS: POTASSIUM CHLORIDE TABS 20 MEQ TABLET.ER (FP) PO ONE (15:28)
[2023-09-29] MEDS ORDERED: FENTANYL CITRATE/PF 50 MCG/ML VIAL ONE (17:45)
[2023-09-29] MEDS ORDERED: MIDAZOLAM HCL 2 MG/2 ML SINGLE DOSE VIAL ONE (17:46)
[2023-09-29 18:09] LABS: POTASSIUM 4.4 mmol/L (3.5-5.1)
[2023-09-29 18:11] LABS: BLOOD UREA NITROGEN 17.8 mg/dL (7-18)
[2023-09-29 18:14] LABS: CREATININE 0.5 mg/dL (0.55-1.3)
[2023-09-29] MEDS: ceFAZolin SODIUM 1 GM VIAL IVPB ONE (18:22)
[2023-09-29] MEDS ORDERED: hydrALAZINE HCL 10 MG TABLET PO PRN (19:20)
[2023-09-29] MEDS ORDERED: ONDANSETRON 4 MG/2 ML VIAL IVPUSH PRN (19:20)
[2023-09-29 20:01] LABS: BLOOD UREA NITROGEN 19.1 mg/dL (7-18); CALCIUM 8.7 mg/dL (8.5-10.1)
[2023-09-29 20:05] LABS: CREATININE 0.6 mg/dL (0.55-1.3)
[2023-09-29] MEDS: ATORVASTATIN CA 20 MG TABLET (FP) PO SCH (22:08)
[2023-09-29] MEDS: LOSARTAN POTASSIUM 50 MG TABLET PO SCH (22:08)
[2023-09-29] MEDS: SODIUM CHLORIDE 1,000 ML IV SCH (22:13)
[2023-09-29] MEDS: POTASSIUM CHLORIDE 10 MEQ in DEXTROSE 5%-NORMAL SALINE 995 ML IV SCH (22:13)
[2023-09-29] MEDS: DEXTROSE 5%-NORMAL SALINE 995 ML with POTASSIUM CHLORIDE 10 MEQ IV SCH (22:13)
[2023-09-30] MEDS: CEFAZOLIN 1 GM in DEXTROSE 5%-WATER - 50 ML IVPB SCH (02:08)
[2023-09-30] MEDS: ACETAMINOPHEN 500 MG TABLET (FP) PO SCH (03:11)
[2023-09-30] MEDS: LEVOTHYROXINE NA 25 MCG TABLET (FP) PO SCH (06:28)
[2023-09-30] MEDS: PANTOPRAZOLE 40 MG TABLET PO SCH (06:28)
[2023-09-30 07:57] LABS: HEMATOCRIT 34.8 % (32.4-45.2); HEMOGLOBIN 12.1 GM/dL (10.7-15.3); MCH 28.7 pg (25.7-33.7); MCHC 34.8 g/dl (32.0-36.0); MEAN CELL VOLUME 82.6 fl (80-96); MEAN PLT VOLUME 7.8 fl (7.5-11.1); PLATELET COUNT 256 10^3/uL (134-434); RBC 4.22 M/mm3 (3.60-5.2); RDW 13.4 % (11.6-15.6); WHITE BLOOD COUNT 10.7 K/mm3 (4.0-10.0)
[2023-09-30 08:14] LABS: POTASSIUM 3.6 mmol/L (3.5-5.1)
[2023-09-30 08:16] LABS: CALCIUM 8.3 mg/dL (8.5-10.1)
[2023-09-30 08:17] LABS: BLOOD UREA NITROGEN 15.7 mg/dL (7-18); MAGNESIUM 1.9 mg/dL (1.8-2.4)
[2023-09-30 08:20] LABS: CREATININE 0.4 mg/dL (0.55-1.3)
[2023-09-30] MEDS: NAPROXEN 250 MG TABLET PO SCH (09:59)
[2023-09-30] MEDS ORDERED: NAPROXEN 250 MG TABLET PO SCH (10:00)
[2023-09-30] MEDS ORDERED: POLYETHYLENE GLYCOL (HEALTHYLAX) 3350 17 GM PACKET PO SCH (10:00)
[2023-09-30] MEDS: POLYETHYLENE GLYCOL (HEALTHYLAX) 3350 17 GM PACKET PO SCH (10:03)
[2023-09-30] MEDS: MULTIVITAMINS (DAILY MVI) TABLET (FP) PO SCH (10:03)
[2023-09-30] MEDS: SODIUM CHLORIDE 1 GM TABLET PO SCH (10:11)
[2023-09-30] MEDS: MAGNESIUM HYDROX 2400MG/30ML ORAL SUSPENSION 30 ML CUP PO PRN (12:52)
[2023-10-01 08:58] LABS: POTASSIUM 3.9 mmol/L (3.5-5.1)
[2023-10-01 09:22] LABS: BLOOD UREA NITROGEN 13.4 mg/dL (7-18)
[2023-10-01 09:25] LABS: CREATININE 0.5 mg/dL (0.55-1.3)
[2023-10-01] MEDS: MINERAL OIL/PET HY-PHL TOPICAL OINTMENT 454 GM JAR TP SCH (20:05)
[2023-10-01] MEDS: BACITRACIN ZINC 15 GM TUBE TOPICAL OINTMENT TP SCH (20:05)
[2023-10-02 07:55] LABS: BASO % 0.9 % (0-2.0); EOS % 2.7 % (0-4.5); HEMATOCRIT 33.6 % (32.4-45.2); HEMOGLOBIN 11.7 GM/dL (10.7-15.3); LYMPH % 22.4 % (8-40); MCH 28.5 pg (25.7-33.7); MEAN CELL VOLUME 81.4 fl (80-96); MEAN PLT VOLUME 7.6 fl (7.5-11.1); MONO % 13.2 % (3.8-10.2); NEUT % 60.8 % (42.8-82.8); PLATELET COUNT 324 10^3/uL (134-434); RBC 4.13 M/mm3 (3.60-5.2); RDW 13.8 % (11.6-15.6); WHITE BLOOD COUNT 9.1 K/mm3 (4.0-10.0)
[2023-10-02 08:11] LABS: BLOOD UREA NITROGEN 14.5 mg/dL (7-18); CALCIUM 8.6 mg/dL (8.5-10.1)
[2023-10-02 08:15] LABS: CREATININE 0.5 mg/dL (0.55-1.3)
[2023-10-02] MEDS: ENOXAPARIN NA (PORCINE) 40 MG/0.4 ML DISP.SYRIN SQ SCH (11:51)
[2023-10-02] MEDS ORDERED: ACETAMINOPHEN WITH CODEINE 300MG/30MG TABLET PO PRN (11:57)
[2023-10-03 07:44] LABS: BASO % 1.5 % (0-2.0); EOS % 4.8 % (0-4.5); HEMATOCRIT 32.9 % (32.4-45.2); HEMOGLOBIN 11.4 GM/dL (10.7-15.3); LYMPH % 23.8 % (8-40); MCH 28.4 pg (25.7-33.7); MCHC 34.5 g/dl (32.0-36.0); MEAN CELL VOLUME 82.3 fl (80-96); MEAN PLT VOLUME 7.5 fl (7.5-11.1); NEUT % 58.9 % (42.8-82.8); PLATELET COUNT 322 10^3/uL (134-434); RDW 13.6 % (11.6-15.6); WHITE BLOOD COUNT 8.2 K/mm3 (4.0-10.0)
[2023-10-03 07:59] LABS: POTASSIUM 4.6 mmol/L (3.5-5.1)
[2023-10-03 08:02] LABS: CALCIUM 8.6 mg/dL (8.5-10.1)
[2023-10-03 08:05] LABS: CREATININE 0.5 mg/dL (0.55-1.3)
[2023-10-03 09:17] VITALS: RESP 16
[2023-10-03 12:40] VITALS: BP 142/77; PULSE 89; TEMP 97.9
== END 2023-10-03 14:00 | DRG 481 ==
LOC: JER 20:04 → JERBED 22:23 → J7W 09-28 02:34
PROVIDERS: ADMIT Internal Medicine
PROC: 0QS706Z Reposition Left Upper Femur with Intramedullary Internal Fixation Device, Open Approach (ICD-10-PCS; principal; 2023-09-29 16:00)
DX: S72.145A Nondisplaced intertrochanteric fracture of left femur, initial encounter for closed fracture (principal); E44.0 Moderate protein-calorie malnutrition; E87.1 Hypo-osmolality and hyponatremia; Z68.1 Body mass index [BMI] 19.9 or less, adult; E78.5 Hyperlipidemia, unspecified; M54.50 Low back pain, unspecified; I10 Essential (primary) hypertension; E87.6 Hypokalemia; R13.19 Other dysphagia; E03.9 Hypothyroidism, unspecified; K21.9 Gastro-esophageal reflux disease without esophagitis; K22.70 Barrett's esophagus without dysplasia; F03.90 Unspecified dementia, unspecified severity, without behavioral disturbance, psychotic disturbance, mood disturbance, and anxiety; M81.0 Age-related osteoporosis without current pathological fracture; L89.152 Pressure ulcer of sacral region, stage 2; W18.39XA Other fall on same level, initial encounter; Y92.098 Other place in other non-institutional residence as the place of occurrence of the external cause; Y99.9 Unspecified external cause status; Z88.0 Allergy status to penicillin
CPT/HCPCS: 36415; 70450-TC; 71045-TC-FY; 72125-TC; 72170-TC-FY; 72192-TC; 73521-TC-FY; 76000-TC-FY; 80048; 80053; 80061; 81003; 83735; 84443; 84484; 85025; 85027; 85610; 85730; 86850; 86900; 86901; 87086; 87635; 93005; 93010; 94010; 94760; 97116-GP; 97162-GP; 99285-25; C1713; J0131

== ENCOUNTER 2024-09-14 22:24 | Inpatient (IN) | payer OTHER ==
[2024-09-15 01:03] LABS: ABSOLUTE IMMATURE GRANULOCYTES 0.05 x10^3/uL (0.0-0.031); BASOPHILS # 0.08 x10^3/uL (0.01-0.08); EOSINOPHILS # 0.45 x10^3/uL (0.04-0.36); HEMOGLOBIN 10.7 g/dL (11.2-15.7); MCHC 32.4 g/dl (32.2-35.5); MEAN CELL VOLUME 86.6 fl (79.4-94.8); MEAN PLT VOLUME 9.3 fl (9.4-12.3); MONOCYTE # 1.33 x10^3/uL (0.24-0.86); MONOCYTE % 11.8 % (4.7-12.5); PLATELET COUNT 384 x10^3/uL (182-369); RDW 12.9 % (12.5-17.0)
[2024-09-15] MEDS ORDERED: ACETAMINOPHEN INJECTION 100 ML ONE (01:03)
[2024-09-15] MEDS ORDERED: ONDANSETRON 4 MG/2 ML VIAL ONE (01:03)
[2024-09-15] MEDS ORDERED: CEFAZOLIN 1 GM/D5W 1 GM/50 ML BAG ONE (01:04)
[2024-09-15] MEDS: ONDANSETRON 4 MG/2 ML VIAL IVPUSH ONE (01:13)
[2024-09-15] MEDS: ACETAMINOPHEN 1000 MG/100 ML BAG IVPB ONE (01:13)
[2024-09-15] MEDS: CEFAZOLIN 1 GM in DEXTROSE 5%-WATER - 50 ML IVPB ONE (01:13)
[2024-09-15] MEDS: ACETAMINOPHEN 500 MG TABLET (FP) PO ONE (01:14)
[2024-09-15 01:26] LABS: POTASSIUM 4.3 mmol/L (3.5-5.1)
[2024-09-15 01:28] LABS: CALCIUM 9.3 mg/dL (8.5-10.1)
[2024-09-15 01:29] LABS: ALBUMIN 3.1 g/dl (3.4-5.0); BLOOD UREA NITROGEN 17.5 mg/dL (7-18)
[2024-09-15 01:32] LABS: CREATININE 0.6 mg/dL (0.55-1.3)
[2024-09-15 01:33] LABS: BILIRUBIN,TOTAL 0.3 mg/dL (0.2-1); TOT PROT 6.5 g/dl (6.4-8.2)
[2024-09-15] MEDS: SODIUM CHLORIDE 1,000 ML IV SCH (06:29)
[2024-09-15] MEDS: LEVOTHYROXINE NA 25 MCG TABLET (FP) PO SCH (07:00)
[2024-09-15 07:43] VITALS: BMI 21.4
[2024-09-15 08:15] LABS: ABSOLUTE IMMATURE GRANULOCYTES 0.06 x10^3/uL (0.0-0.031); BASOPHILS # 0.07 x10^3/uL (0.01-0.08); EOSINOPHIL % 4.5 % (0.7-5.8); EOSINOPHILS # 0.42 x10^3/uL (0.04-0.36); HEMATOCRIT 32.4 % (34.1-44.9); HEMOGLOBIN 10.4 g/dL (11.2-15.7); MCHC 32.1 g/dl (32.2-35.5); MEAN CELL VOLUME 86.9 fl (79.4-94.8); MEAN PLT VOLUME 9.7 fl (9.4-12.3); MONOCYTE # 1.27 x10^3/uL (0.24-0.86); MONOCYTE % 13.5 % (4.7-12.5); PLATELET COUNT 361 x10^3/uL (182-369); RDW 12.7 % (12.5-17.0)
[2024-09-15 08:37] LABS: POTASSIUM 4.2 mmol/L (3.5-5.1)
[2024-09-15 08:40] LABS: MAGNESIUM 1.7 mg/dL (1.8-2.4)
[2024-09-15 08:44] LABS: ALBUMIN 2.8 g/dl (3.4-5.0); BLOOD UREA NITROGEN 18.7 mg/dL (7-18)
[2024-09-15 08:44] LABS: PHOSPHOROUS 4.1 mg/dL (2.5-4.9)
[2024-09-15 08:47] LABS: CREATININE 0.7 mg/dL (0.55-1.3)
[2024-09-15 08:49] LABS: BILIRUBIN,TOTAL 0.3 mg/dL (0.2-1); TOT PROT 5.8 g/dl (6.4-8.2)
[2024-09-15] MEDS: ESCITALOPRAM OXALATE 20 MG TABLET PO SCH (09:26)
[2024-09-15] MEDS: QUEtiapine FUMARATE 25 MG TABLET PO SCH (09:26)
[2024-09-15] MEDS: SODIUM CHLORIDE 1 GM TABLET PO SCH (09:26)
[2024-09-15] MEDS: SENNOSIDES/DOCUSATE COMBO (SENNA PLUS) TABLET (UD) PO SCH (09:26)
[2024-09-15] MEDS: LOSARTAN POTASSIUM 50 MG TABLET PO SCH (09:27)
[2024-09-15] MEDS: POLYETHYLENE GLYCOL (HEALTHYLAX) 3350 17 GM PACKET PO SCH (09:27)
[2024-09-15] MEDS: CEFAZOLIN 1 GM/D5W 1 GM/50 ML BAG IVPB SCH (09:27)
[2024-09-15] MEDS: PANTOPRAZOLE 40 MG TABLET PO SCH (10:51)
[2024-09-15] MEDS: MAGNESIUM OXIDE 400 MG TABLET (FP) PO ONE (13:00)
[2024-09-15 17:28] LABS: EPI CELLS 7 /uL (0-25.1); HYALINE CASTS 0 /uL (0-3.1); PH,URINE 6.5 (5.0-8.0); URINE APPEARANCE CLEAR; URINE BACTERIA 21 /uL (0-1359); URINE BILIRUBIN NEGATIVE (NEGATIVE); URINE COLOR YELLOW; URINE GLUCOSE (UA) NEGATIVE (NEGATIVE); URINE KETONE NEGATIVE (NEGATIVE); URINE LEUK ESTERASE 2+ (NEGATIVE); URINE NITRITE NEGATIVE (NEGATIVE); URINE PROTEIN NEGATIVE (NEGATIVE); URINE RBC 7 /uL (0-23.9); URINE UROBILINOGEN 0.2 mg/dL (0.2-1.0); URINE WBC 105 /uL (0-25.8)
[2024-09-15] MEDS: HEPARIN NA (PORCINE) 5,000 UNITS/ML 1ML VIAL SQ SCH (21:07)
[2024-09-15] MEDS: ATORVASTATIN CA 20 MG TABLET (FP) PO SCH (21:08)
[2024-09-15 22:15] VITALS: RESP 18
[2024-09-15] MEDS: ACETAMINOPHEN 1000 MG/100 ML BAG IVPB PRN (22:44)
[2024-09-16 08:21] LABS: ABSOLUTE IMMATURE GRANULOCYTES 0.03 x10^3/uL (0.0-0.031); BASOPHILS # 0.07 x10^3/uL (0.01-0.08); EOSINOPHIL % 5.5 % (0.7-5.8); EOSINOPHILS # 0.39 x10^3/uL (0.04-0.36); HEMATOCRIT 35.1 % (34.1-44.9); MCHC 31.3 g/dl (32.2-35.5); MEAN CELL VOLUME 88.6 fl (79.4-94.8); MEAN PLT VOLUME 9.6 fl (9.4-12.3); MONOCYTE # 0.75 x10^3/uL (0.24-0.86); MONOCYTE % 10.6 % (4.7-12.5); PLATELET COUNT 398 x10^3/uL (182-369); RDW 12.8 % (12.5-17.0)
[2024-09-16 08:37] LABS: POTASSIUM 4.3 mmol/L (3.5-5.1)
[2024-09-16 08:39] LABS: ALBUMIN 2.8 g/dl (3.4-5.0); CALCIUM 8.9 mg/dL (8.5-10.1)
[2024-09-16 08:40] LABS: BLOOD UREA NITROGEN 12.9 mg/dL (7-18)
[2024-09-16 08:42] LABS: MAGNESIUM 1.9 mg/dL (1.8-2.4)
[2024-09-16 08:43] LABS: CREATININE 0.6 mg/dL (0.55-1.3); PHOSPHOROUS 4.2 mg/dL (2.5-4.9)
[2024-09-16 08:44] LABS: BILIRUBIN,TOTAL 0.2 mg/dL (0.2-1); TOT PROT 5.9 g/dl (6.4-8.2)
[2024-09-16] MEDS: LIDOCAINE 5% TOPICAL PATCH TP SCH (17:18)
[2024-09-17] MEDS: LIDOCAINE PATCH REMOVAL MC SCH (06:12)
[2024-09-17 08:12] LABS: ABSOLUTE IMMATURE GRANULOCYTES 0.03 x10^3/uL (0.0-0.031); BASOPHILS # 0.07 x10^3/uL (0.01-0.08); EOSINOPHIL % 5.5 % (0.7-5.8); EOSINOPHILS # 0.42 x10^3/uL (0.04-0.36); HEMATOCRIT 36.6 % (34.1-44.9); HEMOGLOBIN 11.7 g/dL (11.2-15.7); MEAN CELL VOLUME 86.7 fl (79.4-94.8); MEAN PLT VOLUME 9.4 fl (9.4-12.3); MONOCYTE # 0.83 x10^3/uL (0.24-0.86); MONOCYTE % 10.9 % (4.7-12.5); PLATELET COUNT 452 x10^3/uL (182-369); RDW 12.7 % (12.5-17.0)
[2024-09-17 08:28] LABS: POTASSIUM 4.2 mmol/L (3.5-5.1)
[2024-09-17 08:39] LABS: BLOOD UREA NITROGEN 12.8 mg/dL (7-18); PHOSPHOROUS 3.8 mg/dL (2.5-4.9)
[2024-09-17 08:40] LABS: BILIRUBIN,TOTAL 0.2 mg/dL (0.2-1); TOT PROT 6.2 g/dl (6.4-8.2)
[2024-09-17 08:42] LABS: CALCIUM 9.6 mg/dL (8.5-10.1); CREATININE 0.6 mg/dL (0.55-1.3)
[2024-09-17 08:43] LABS: MAGNESIUM 1.8 mg/dL (1.8-2.4)
[2024-09-17 15:07] VITALS: BP 133/68; PULSE 93; TEMP 98.1
[2024-09-17] MEDS ORDERED: DOXYCYCLINE HYCLATE 100 MG CAPSULE PO SCH (18:00)
== END 2024-09-17 15:58 | DRG 607 ==
LOC: JER 22:24 → JERBED 09-15 03:01 → J8W 09-15 05:10
PROVIDERS: ADMIT Hospitalist; ATTEND Nurse Practitioner Family
DX: S60.562A Insect bite (nonvenomous) of left hand, initial encounter (principal); E87.1 Hypo-osmolality and hyponatremia; E78.5 Hyperlipidemia, unspecified; E03.9 Hypothyroidism, unspecified; F03.90 Unspecified dementia, unspecified severity, without behavioral disturbance, psychotic disturbance, mood disturbance, and anxiety; M25.512 Pain in left shoulder; M25.552 Pain in left hip; M81.0 Age-related osteoporosis without current pathological fracture; W18.30XA Fall on same level, unspecified, initial encounter; Y93.9 Activity, unspecified; Y92.121 Bathroom in nursing home as the place of occurrence of the external cause; Y99.9 Unspecified external cause status
CPT/HCPCS: 0241U-QW; 36415; 70450-TC; 71045-TC-FY; 72125-TC; 72128-TC; 73030-TC-LT-FY; 73060-TC-LT-FY; 73110-TC-LT-FY; 73130-TC-LT-FY; 73502-TC-LT-FY; 80053; 81003; 83605; 83735; 84100; 85025; 85651; 87040; 87086; 97116-GP; 97161-GP; 99285-25; J0131; J1644

== ENCOUNTER 2024-11-10 21:35 | Emergency (ER) | payer OTHER ==
[2024-11-10 22:01] VITALS: TEMP 98.7; BMI 22.1
[2024-11-10 22:54] LABS: EPI CELLS 1 /uL (0-25.1); HYALINE CASTS 0 /uL (0-3.1); URINE APPEARANCE CLEAR; URINE BACTERIA >9,000 /uL (0-1359); URINE BILIRUBIN NEGATIVE (NEGATIVE); URINE COLOR YELLOW; URINE GLUCOSE (UA) NEGATIVE (NEGATIVE); URINE KETONE NEGATIVE (NEGATIVE); URINE LEUK ESTERASE 2+ (NEGATIVE); URINE NITRITE NEGATIVE (NEGATIVE); URINE PROTEIN NEGATIVE (NEGATIVE); URINE RBC 14 /uL (0-23.9); URINE WBC 679 /uL (0-25.8)
[2024-11-11] MEDS: CEPHALEXIN MONOHYDRATE 500 MG CAPSULE (UD) PO ONE (00:05)
[2024-11-11 01:15] VITALS: BP 166/77; PULSE 81; RESP 16
== END 2024-11-11 01:29 | disposition home or self-care (01) ==
LOC: JER 21:35
DX: N39.0 Urinary tract infection, site not specified (principal); S80.11XA Contusion of right lower leg, initial encounter; W01.198A Fall on same level from slipping, tripping and stumbling with subsequent striking against other object, initial encounter
CPT/HCPCS: 70450-TC; 71045-TC-FY; 72125-TC; 72170-TC-FY; 73590-TC-LT-FY; 73610-TC-LT-FY; 73630-TC-LT; 81003; 82962; 87086; 93005; 93010; 99285-25